=== PATIENT | female | born 1965 | race Caucasian/White ===

== ENCOUNTER 2019-11-03 05:45 | Day surgery (SDC) | payer BC ==
[2019-11-01 10:00] LABS: BASOPHILS # (AUTO) 0.06 x10^3/uL (0-0.1); BASOPHILS % (AUTO) 1 % (0-1); EOSINOPHILS # (AUTO) 0.22 x10^3/uL (0-0.4); EOSINOPHILS % (AUTO) 3 % (1-7); LYMPHOCYTES # (AUTO) 2.08 x10^3/uL (1-3.4); LYMPHOCYTES % (AUTO) 28 % (22-44); MD NO; MEAN CORPUSCULAR HGB CONC 34.2 g/dL (32.4-35.8); MEAN CORPUSCULAR VOLUME 87.8 fL (80-100); MEAN PLATELET VOLUME 7.8 fL (7.4-10.4); MONOCYTES # (AUTO) 0.48 x10^3/uL (0.2-0.8); MONOCYTES % (AUTO) 6 % (2-9); NEUTROPHILS # (AUTO) 4.74 x10^3/uL (1.8-6.8); NEUTROPHILS % (AUTO) 63 % (42-75); PLATELET COUNT 334 x10^3/uL (130-400); RED BLOOD COUNT 5.36 x10^6/uL (3.82-5.3); RED CELL DISTRIBUTION WIDTH 12.8 % (9.6-15.2)
[2019-11-01 10:50] LABS: MICROSCOPIC AUTO
[2019-11-01 10:58] LABS: CULTURE INDICATED? YES
[~2019-11-03] VITALS: Ht 175.3 cm; Wt 109.0 kg
[~2019-11-03 05:45] MED LIST: None at This Time
[2019-11-03 06:32] VITALS: BP 161/87
[2019-11-03] MEDS ORDERED: LACTATED RINGERS 1,000 ML IV SCH (06:34)
[2019-11-03] MEDS ORDERED: CHLORHEXIDINE 15 ML UDC MM STA (06:43)
[2019-11-03] MEDS ORDERED: ACETAMINOPHEN 500 MG TABLET PO ONE (07:00)
[2019-11-03] MEDS ORDERED: OxyconTIN ER 10 MG TAB.ER PO ONE (07:00)
[2019-11-03] MEDS ORDERED: GABAPENTIN 300 MG CAPSULE PO ONE (07:00)
[2019-11-03] MEDS ORDERED: FENTANYL PF 250 MCG/5ML ONE (07:01)
[2019-11-03] MEDS ORDERED: MIDAZOLAM 1 MG/ML, 2ML ONE (07:01)
[2019-11-03] MEDS ORDERED: BUPIVACAINE/PF-EPI 0.25% 1:200K ONE (07:05)
[2019-11-03] MEDS ORDERED: FLUORESCEIN SODIUM 500 MG/5 ML ONE (07:05)
[2019-11-03] MEDS ORDERED: PROPOFOL 10 MG/ML, 20ML ONE (07:31)
[2019-11-03] MEDS ORDERED: SUCCINYLCHOLINE 20 MG/ML, 10ML ONE (07:31)
[2019-11-03] MEDS ORDERED: hydrALAzine 20 MG/ML, 1ML ONE (07:31)
[2019-11-03] MEDS ORDERED: SUGAMMADEX 200 MG/2 ML IVPush ONE (07:31)
[2019-11-03] MEDS ORDERED: ROCURONIUM 10 MG/ML,10ML ONE (07:31)
[2019-11-03] MEDS ORDERED: CEFAZOLIN 1,000 MG ONE (07:31)
[2019-11-03] MEDS ORDERED: ONDANSETRON 2MG/ML, 2ML ONE (07:31)
[2019-11-03] MEDS ORDERED: DEXAMETHASONE 4 MG/ML, 1ML ONE (07:31)
[2019-11-03] MEDS ORDERED: METOCLOPRAMIDE 5 MG/ML, 2ML IV PRN (09:00)
[2019-11-03] MEDS ORDERED: HYDROmorphone 1 MG/ML, 1ML INJ IV PRN (09:00)
[2019-11-03] MEDS ORDERED: ALBUTEROL SULFATE 2.5 MG/3 ML NPPB PRN (09:00)
[2019-11-03] MEDS ORDERED: ONDANSETRON 2MG/ML, 2ML IVPush PRN (09:00)
[2019-11-03] MEDS ORDERED: PROMETHAZINE 25 MG/ML, 1ML IV PRN (09:00)
[2019-11-03] MEDS ORDERED: MEPERIDINE/PF 25MG/0.5ML IVPush PRN (09:00)
[2019-11-03] MEDS ORDERED: LABETALOL 5MG/ML, 20ML IV PRN (09:00)
[2019-11-03] MEDS ORDERED: hydrALAzine 20 MG/ML, 1ML IV PRN (09:00)
[2019-11-03] MEDS ORDERED: DIAZEPAM 5 MG/ML, 2ML IV PRN ×2 (09:00)
[2019-11-03] MEDS ORDERED: KETOROLAC 30 MG/1 ML IV PRN (09:00)
[2019-11-03] MEDS ORDERED: OXYcodone 5 MG/5 ML ORAL.SOL UDC PO PRN (09:00)
[2019-11-03] MEDS ORDERED: FENTANYL PF 100 MCG/2ML ONE (09:02)
[2019-11-03] MEDS: FENTANYL PF 100 MCG/2ML IV PRN ×2 (09:05→09:16)
== END 2019-11-03 12:30 | disposition home or self-care (01) ==
LOC: OUT 05:45
PROVIDERS: ATTEND Obstetrics & Gynecology
DX: L68.0 Hirsutism (principal); D39.11 Neoplasm of uncertain behavior of right ovary; E28.1 Androgen excess; D25.9 Leiomyoma of uterus, unspecified; K80.80 Other cholelithiasis without obstruction; Z79.891 Long term (current) use of opiate analgesic; Z79.899 Other long term (current) drug therapy; Z98.890 Other specified postprocedural states
CPT/HCPCS: 36415; 58661; 71046; 81001; 85025; 86850; 86900; 87086; 88305; 93005; J0330; J0360; J0690; J1100; J2250; J2405; J2704; J3010; J7120; U0001